=== PATIENT | female | born 1980 | race African-American/Black ===

== ENCOUNTER 2019-02-02 14:07 | Emergency (ER) | payer OTHER ==
[~2019-02-02] VITALS: Ht 175.3 cm; Wt 82.6 kg
[2019-02-02 14:28] VITALS: BP 113/78; Ht 175.3 cm; Wt 82.6 kg
== END 2019-02-02 15:24 | disposition home or self-care (01) ==
LOC: ED 14:07
DX: L30.9 Dermatitis, unspecified (principal); J02.9 Acute pharyngitis, unspecified; Z88.6 Allergy status to analgesic agent

== ENCOUNTER 2019-02-06 07:16 | Emergency (ER) | payer OTHER ==
[~2019-02-06] VITALS: Ht 175.3 cm; Wt 59.9 kg
[2019-02-06 07:23] VITALS: BP 132/86; Ht 175.3 cm; Wt 59.9 kg
== END 2019-02-06 07:52 | disposition home or self-care (01) ==
LOC: ED 07:16
DX: L42 Pityriasis rosea (principal); Z88.6 Allergy status to analgesic agent; Z98.890 Other specified postprocedural states